=== PATIENT | male | born 1960 | race Caucasian/White ===

== ENCOUNTER → 2016-12-01 | Outpatient (CLI) | payer BC ==
--- NOTE | 2016-12-01 10:41 | DX ---
Bilateral Knee, 6 Views Indication: Chronic left knee pain. New right knee pain. Technique: Bilateral AP, lateral, and Merchant views. Findings: The bones are normally mineralized and anatomically aligned. Joint spaces are well preserve d except for equivocal medial tibiofemoral joint space narrowing. No marginal osteophytes or erosions . The patellae are normally positioned. No lateral translation or lateral tilt. No effusion, intraart icular loose body, or chondrocalcinosis. Surgical clips are present along the medial left knee and pr oximal tibia. Impression: 1. Minimal symmetric narrowing of bilateral medial tibiofemoral compartments: however, there are no f eatures of osteoarthritis or erosive disease. 2. No evidence of patellofemoral tracking abnormality. 3. No effusion or loose body.
== END ==
LOC: BMCIMAGING 09:54
PROVIDERS: ATTEND Physician Assistant
DX: M25.561 Pain in right knee (principal); M25.562 Pain in left knee

== ENCOUNTER → 2017-07-27 | Outpatient (CLI) | payer BC | LOC: BMCIMAGING 14:43 | PROVIDERS: ATTEND Podiatrist Foot & Ankle Surgery | DX: M20.11 Hallux valgus (acquired), right foot (principal); M19.071 Primary osteoarthritis, right ankle and foot ==

== ENCOUNTER → 2018-05-08 | Outpatient (CLI) | payer BC | LOC: FIMAGING 13:56 | PROVIDERS: ATTEND Internal Medicine | DX: N63.20 Unspecified lump in the left breast, unspecified quadrant (principal); N64.4 Mastodynia ==